=== PATIENT | female | born 1965 | race Caucasian/White ===

== ENCOUNTER 2016-10-27 12:16 | Emergency (ER) | payer MEDICARE, OTHER ==
[2016-10-27 14:47] LABS: HEMOGLOBIN 12.6 gm/dl (12.3-15.3); RED BLOOD COUNT 3.96 M/UL (4.00-5.10); WHITE BLOOD COUNT 17.9 K/UL (4.5-11.0)
[2016-10-27 15:44] LABS: BUN/CREATININE RATIO 12 (0-10)
== END 2016-10-27 16:50 | disposition home or self-care (01) ==
LOC: ER1 12:16
PROVIDERS: Family Medicine
DX: R10.9 Unspecified abdominal pain (principal); R30.0 Dysuria; E11.9 Type 2 diabetes mellitus without complications; F17.200 Nicotine dependence, unspecified, uncomplicated; Z79.84 Long term (current) use of oral hypoglycemic drugs; Z79.899 Other long term (current) drug therapy
CPT/HCPCS: 36415; 80053; 81001; 83690; 85025; 87086; 99284; J2270; J2405

== ENCOUNTER 2020-10-26 18:04 | Emergency (ER) | payer MEDICARE ==
[~2020-10-26 18:04] MED LIST: IBUPROFEN800 MG PO; NORCO 5-325 TA1 EACH PO
[2020-10-26] MEDS ORDERED: LODINE CAP 300300 MG PO (19:52)
== END 2020-10-26 20:05 | disposition home or self-care (01) ==
LOC: ER1 18:04
DX: S90.31XA Contusion of right foot, initial encounter (principal); E11.9 Type 2 diabetes mellitus without complications; I25.10 Atherosclerotic heart disease of native coronary artery without angina pectoris; F17.210 Nicotine dependence, cigarettes, uncomplicated; Z88.8 Allergy status to other drugs, medicaments and biological substances; X50.1XXA Overexertion from prolonged static or awkward postures, initial encounter; Y92.009 Unspecified place in unspecified non-institutional (private) residence as the place of occurrence of the external cause
CPT/HCPCS: 73630; 99283